=== PATIENT | male | born 1995 | race Caucasian/White ===

== ENCOUNTER 2024-10-24 07:23 | Emergency (ER) | payer BC, SELFPAY ==
[2024-10-24 07:26] LABS: Glucose - Point of Care 104 mg/dl (70-99)
[2024-10-24 07:29] VITALS: BP 95/58
[2024-10-24] MEDS: NSS 1000 IV (07:30)
[2024-10-24 07:34] VITALS: BP 96/60
[2024-10-24 07:35] LABS: % Basophils 0.2 % (0-2); % Eosinophils 3.2 % (0-6); % Immature Granulocytes 0.3 % (0-0.5); % Lymphocytes 30.3 % (20.5-51.1); % Monocytes 8.5 % (1.7-9.3); % Neutrophils 57.5 % (42.2-75.2); Absolute Eosinophils 0.3 10^3/uL (0-0.7); Absolute Lymphocytes 2.8 10^3/uL (1.2-3.4); Absolute Monocytes 0.8 10^3/uL (0.1-0.6); Absolute Neutrophils 5.4 10^3/uL (1.4-6.5); Hematocrit 43.2 % (39.0-52.0); Hemoglobin 14.7 g/dL (13.0-18.0); Mean Corpuscular Hgb 31.7 pg (27.0-31.0); Mean Corpuscular Volume 93.3 fL (80.0-94.0); Mean Platelet Volume 8.5 fL (7.4-10.4); Nucleated Red Blood Cells % 0 % (-); Platelet Count 327 10^3/uL (130-400); Red Blood Cell Count 4.63 10^6/uL (4.70-6.10); Red Cell Dist. Width 11.9 % (11.5-14.5); White Blood Cell Count 9.3 10^3/uL (4.8-10.8)
[2024-10-24 07:38] VITALS: BMI 28.7
--- NOTE | 2024-10-24 07:38 | ED.GENMED ---
History of Present Illness
General
Chief Complaint: Fainting/Passed Out
Source: patient
Exam Limitations: none
Time Seen by Provider: 10/24/24 07:28
History of Present Illness
History of Present Illness:
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 He was in the IV office sitting talking about recent patient encounters and started to feel lightheaded. There was no
associated chest pain.
He remembers he was waking up in the chair that he resume. He does feel slightly lightheaded. He denies current chest pain. No palpitations. No recent surgery or travel. No leg swelling or calf pain.
Phy Exam
Physical Exam
Physical Exam:
General: Slightly pale appearing male no acute respiratory distress
HEENT: Normocephalic atraumatic heart: Regular rate and rhythm no murmurs
Lungs: Clear no wheeze
Extremities: No cyanosis or edema
Skin is warm no rash
Course
Orders/Labs/Results
Orders:
Orders
10/24/24 07:24
Electrocardiogram (*1) Urgent
Reason for Study: Syncope
EKG- Treatment ONCE
10/24/24 07:27
Cardiac Monitoring- Treatment ONCE
IV Insert/Care/Rem.- Treatment PRN
10/24/24 07:28
Complete Blood Count/With Diff Urgent
Comprehensive Metabolic Panel Urgent
Magnesium Urgent
Troponin I Urgent
Abnormal Lab Results
10/24/24 10/24/24
07:25 07:28
RBC 4.63 L 10^6/uL
(4.70-6.10)
MCH 31.7 H pg
(27.0-31.0)
Absolute Monos (auto) 0.8 H 10^3/uL
(0.1-0.6)
BUN 23 H mg/dl
(9-20)
Glucose 113 H mg/dl
(70-99)
POC Glucose 104 H mg/dl
(70-99)
10/24/24 07:28
10/24/24 07:28
Vital Signs
Initial and Last Documented VS:
Initial Vital Signs
Temp Pulse Resp BP Pulse Ox
97.8 F 52 12 95/58 100
10/24/24 07:29 10/24/24 07:29 10/24/24 07:29 10/24/24 07:29 10/24/24 07:29
Last Documented Vital Signs
Temp Pulse Resp BP Pulse Ox
97.8 F 46 14 103/64 96
10/24/24 07:29 10/24/24 09:00 10/24/24 09:00 10/24/24 09:00 10/24/24 08:45
MDM/Problems Addressed
Differential Diagnosis Includes:
Patient presents after what sounds like syncopal episode. He was talking about worrisome patient encounters. He started to feel anxious and lightheaded prior to passing out. There is no associated chest pain. He denies chest pain currently.
Differential could include vasovagal episode versus arrhythmia. He is not tachycardic there is no chest pain. Do not suspect PE.
Will obtain EKG and labs. Placed on monitor. Fluids ordered.
*Critical Care Note
Total Time (30-74mins, 75-104mins- exclusive of procedures): Not Applicable
Update Note
Update Note:
Patient feels and looks much better upon reassessment. Heart rate in the 50s blood pressure improved after fluids. BUN slightly elevated. Event related to vasovagal response with mild volume depletion. There is no chest pain. He is not short of
breath vital signs remained stable. Do not suspect PE. No risk factors for such. Patient wishes to go back to work today. He was ambulated here in the emergency room felt safe and felt better and returned to work.
EKG shows sinus rhythm
With early repolarization
ED Attending Note
-
Portions of this chart may have been created with voice recognition software.� Occasional wrong word or��sound alike� substitutions may have occurred due to the inherent limitations of voice recognition software.
Discharge Plan
Departure
Patient Disposition: Home (Routine Discharge)
Date of Disposition: 10/24/24
Time of Disposition: 09:11
Patient with high blood pressure during this ER visit?: No
Discharge Problem:
Syncope
Instructions: Vasovagal Response (DC)
Referrals:
UNKNOWN - PT DOES,NOT KNOW [Family Provider] -
Activity Restrictions/Additional Instructions:
Stay hydrated. Return here for any worsening symptoms otherwise follow-up with your doctor
Interventions
Interventions:
*Risk Screen - Suicide Last Done: 10/24/24 07:34
*General Assessment Last Done: 10/24/24 07:34
*Neglect/Abuse Screening Last Done: 10/24/24 07:34
ED- Fall Risk Assessment Last Done: 10/24/24 07:34
ED- Cardiac Assessment Last Done: 10/24/24 07:44
ED- Neurological Assessment Last Done: 10/24/24 07:44
Discharge Date and Time
Print Language: POLISH
[2024-10-24 07:50] LABS: ALT (SGPT) 36 U/L (0-50); AST (SGOT) 29 U/L (17-59); Albumin 4.8 g/dl (3.5-5.0); Alkaline Phosphatase 84 U/L (38-126); Blood Urea Nitrogen 23 mg/dl (9-20); Calcium 9.7 mg/dl (8.4-10.2); Carbon Dioxide 28 mmol/L (22-30); Chloride 102 mmol/L (98-107); Estimated Creatinine Clearance 85 ml/min; Glucose 113 mg/dl (70-99); Magnesium 1.8 mg/dl (1.6-2.3); Sodium 141 mmol/L (135-145); Total Bilirubin 0.5 mg/dl (0.2-1.3); Total Protein 7.2 g/dl (6.3-8.2); eGFR > 60.00
[2024-10-24 07:59] LABS: Troponin I < 0.012 ng/ml
[2024-10-24 08:00] VITALS: BP 109/67
[2024-10-24 08:05] LABS: Potassium 4.3 mmol/L (3.5-5.1)
[2024-10-24 09:00] VITALS: BP 103/64
== END 2024-10-24 10:00 | disposition home or self-care (01) ==
LOC: EMR 07:23
PROVIDERS: Internal Medicine; EMERGENCY PHYSICIAN Student in an Organized Health Care Education/Training Program
DX: R55 Syncope and collapse (principal); E86.9 Volume depletion, unspecified; Y93.89 Activity, other specified; Y92.238 Other place in hospital as the place of occurrence of the external cause; Y99.0 Civilian activity done for income or pay; Z91.048 Other nonmedicinal substance allergy status
CPT/HCPCS: 99284; 96360; 96361; 80053; 82962; 83735; 84484; 85025; 93005

== ENCOUNTER 2025-09-11 14:32 | Emergency (ER) | payer BC, SELFPAY ==
[2025-09-11 14:34] VITALS: BP 139/82
--- NOTE | 2025-09-11 15:34 | ED.GENMED ---
History of Present Illness
General
Chief Complaint: Blood and Body Fluid Exposure
Source: patient
Time Seen by Provider: 09/11/25 15:27
History of Present Illness
History of Present Illness:
29-year-old male with no significant past medical history, works as a nurse on , and was drawing labs from a patient , when he was accidentally stuck hypodermic needle to the left index finger. No other injuries were sustained.
Source patient has no documented history of HIV/hepatitis.
Past History
Past History
ED Past Medical History: None
ED Past Surgical History: None
Social History
Tobacco: Non-smoker
Drug: None
Personal:
Living: with family
Employment: Employed
Review of Systems
Review of Systems
All Other Systems: ROS reviewed and negative except as documented in HPI and ROS
Phy Exam
Physical Exam
Physical Exam:
GENERAL: Alert , in no apparent distress
EYE: conjunctiva clear
Head: Normocephalic atraumatic
NECK: Supple,
ENT: mmm.
LUNGS: no acute respiratory distress
NEUROLOGICAL: Alert and oriented
SKIN: Warm and dry, skin intact.
MUSCULOSKELETAL: well perfused.
PSYCH: Normal and appropriate interaction.
Scores
Heart Failure Risk
Heart Failure Risk Score: Not Applicable
Heart Score for Chest Pain Patients
STEMI patient?: Not applicable
Withdrawal Assessment of Alcohol
Withdrawal Assessment Completed?: Not applicable
Course
Orders/Labs/Results
Orders:
Orders
09/11/25 15:27
Pt has had a significant HIV exposure? Routine
HIV Exposure is significant?: Yes
09/11/25 15:43
HIV Combo Urgent
Hepatitis B Surface Antibody Urgent
Hepatitis B Surface Antigen Urgent
Hepatitis C Antibody Urgent
Vital Signs
Initial and Last Documented VS:
Initial Vital Signs
Temp Pulse Resp BP Pulse Ox
97.7 F 78 16 139/82 100
09/11/25 14:34 09/11/25 14:34 09/11/25 14:34 09/11/25 14:34 09/11/25 14:34
Last Documented Vital Signs
Temp Pulse Resp BP Pulse Ox
97.7 F 78 16 139/82 100
09/11/25 14:34 09/11/25 14:34 09/11/25 14:34 09/11/25 14:34 09/11/25 15:35
MDM/Problems Addressed
MDM/Problems Addressed:
29-year-old male presented to the ER after an accidental needlestick to the left index finger earlier today. Will draw labs on patient to get baseline labs. I did contact the hospitalist taking care of the source patient, Dr. David, who will
order source patient needlestick labs including HIV and hepatitis labs for the source patient. The source patient is nonverbal but with implied consent for safety reasons these labs will be drawn. Had discussion with the patient about initiating
prophylaxis, patient declines medications at this time. Will follow-up with occupational health.
*Pulse Oximetry
SaO2: 100
Oxygen Mode of Delivery: Room air
Patient hypoxic: no
*Critical Care Note
Total Time (30-74mins, 75-104mins- exclusive of procedures): Not Applicable
ED Attending Note
-
Portions of this chart may have been created with voice recognition software.� Occasional wrong word or��sound alike� substitutions may have occurred due to the inherent limitations of voice recognition software.
Discharge Plan
Departure
Patient Disposition: Home (Routine Discharge)
Date of Disposition: 09/11/25
Time of Disposition: 15:34
Patient with high blood pressure during this ER visit?: No
Discharge Problem:
Accidental hypodermic needlestick injury
Instructions: Exposure to HIV or hepatitis through blood or body fluids
Referrals:
UNKNOWN - PT DOES,NOT KNOW [Family Provider]
Stand Alone Forms: Bl/Fluid Consent/Declination, Blood Body/Fluid Exposure
Interventions
Interventions:
*Risk Screen - Suicide Last Done: 09/11/25 15:52
*General Assessment Last Done: 09/11/25 15:49
*Neglect/Abuse Screening Last Done: 09/11/25 15:49
*ED COVID-19 Vaccine History Last Done: 09/11/25 15:49
*ED Influenza Vaccine History Last Done: 09/11/25 15:49
[facility] Fall Risk Assessment Tool Last Done: 09/11/25 15:52
*Nursing Disposition Last Done: 09/11/25 15:52
ED-Skin Assessment Last Done: 09/11/25 15:52
Discharge Date and Time
Print Language: MOROCCAN
[2025-09-11 18:12] LABS: Hepatitis B Surface Antigen Negative (Negative)
[2025-09-11 18:29] LABS: Hepatitis C Antibody Negative (Negative)
== END 2025-09-11 15:53 | disposition home or self-care (01) ==
LOC: EMR 14:32
PROVIDERS: Physician Assistant Medical; EMERGENCY PHYSICIAN Emergency Medicine
DX: Z77.21 Contact with and (suspected) exposure to potentially hazardous body fluids (principal)
CPT/HCPCS: 99283; 86706; 86803; 87340; 87389